=== PATIENT | female | born 1995 | race Caucasian/White ===

== ENCOUNTER 2017-09-24 03:47 | Emergency (ER) | payer OTHER ==
[2017-09-24 04:32] VITALS: O2SAT 96
[2017-09-24 04:54] LABS: BLOOD UREA NITROGEN 8 mg/dl (7-18); CALCIUM 8.2 mg/dl (8.5-10.1); CARBON DIOXIDE 23 mmol/L (21-32); CREATININE 0.43 mg/dl (0.60-1.20); GLUCOSE 101 mg/dl (70-99); POTASSIUM 3.8 mmol/L (3.5-5.1); SODIUM 142 mmol/L (136-145)
--- NOTE | 2017-09-24 07:21 | EMERGENCY ROOM VISIT NOTE ---
ED Visit Note First contact with patient: 03:56 CHIEF COMPLAINT: Altered mental status from Alcohol overdose HISTORY OF PRESENT ILLNESS: This 22 year old female patient presents to the emergency department via ambulance for evaluation of altered mental status, presumably from alcohol intoxication. The patient was drinking this evening with her friends, and eventually passed out in a friend's apartment building. The friends try to take the patient back to her own apartment, however she urinated herself and had multiple episodes of vomiting. The patient does not report pain or injury. No concern for sexual or physical assault. REVIEW OF SYSTEMS: Review of systems was somewhat limited secondary to patient' s presumed alcohol intoxication status. Review of systems was performed to the best of our ability and reperformed as the patient began to sober up. All other systems were reviewed and are negative. ALLERGIES: See EMR MEDICATIONS: See EMR PMH: No chronic medical disease SOCIAL HISTORY: Student and lives locally PHYSICAL EXAM VITALS: Vitals are noted on the nurse's note and reviewed by myself. Vital signs stable. GENERAL: White female, who is in no acute distress and resting comfortably. Patient is visibly altered and smells of alcohol. HEAD: Normocephalic atraumatic. EARS: External ear normal. External auditory canals clear, tympanic membranes pearly hickey without erythema or effusion bilaterally. EYES: Pupils equal round and reactive to light and accommodation. Conjunctivae without injection, sclerae without icterus. Extraocular movements intact. NOSE: Patent, turbinates without inflammation or discharge. MOUTH: Mucous membranes moist. Tonsils are not enlarged. Pharynx without erythema, blood, vomitus, or exudate. Uvula midline. Airway patent. NECK: Supple without nuchal rigidity. No lymphadenopathy. Cervical spine is nontender. HEART: Regular rate and rhythm without murmurs gallops or rubs. LUNGS: Clear to auscultation bilaterally without wheezes, rales or rhonchi. No retractions or accessory muscle use. ABDOMEN: Positive normal bowel sounds x 4. Soft, nontender, without masses or organomegaly. No guarding or rebound tenderness. MUSCULOSKELETAL: No muscle atrophy, erythema, or edema noted. Gross motor function intact to all extremities. NEURO: Patient was alert to person but not place or time. They appear with altered mental status. SKIN: The skin was without rashes, erythema, edema, or bruising. No Tenting of the skin. EMERGENCY DEPARTMENT COURSE: Physical exam and history was performed. Nursing notes and EMR were reviewed. The patient appears to be altered on my examination. I suspect this is from an alcohol overdose. Conservative care measures and aspiration precautions were instituted. The patient was placed on surveillance monitor and watched during the patient's stay. The patient was placed in a prone position. Blood work was obtained and was reviewed. The patient's blood alcohol level was 278. This appears to be the primary cause of the altered status. Patient was reevaluated multiple times throughout the course of their emergency department stay. She remained in stable condition until the time of shift change. The case was discussed with Cam Muñiz PA-C, who will assume care at this time. Please see his dictation for final disposition. Differential diagnosis: Etiologies such as alcohol intoxication, metabolic, infection, hypoglycemia, electrolyte abnormalities, cardiac sources, intracerebral event, toxicologic, neurologic, as well as others were entertained. DIAGNOSIS: Alcohol use with intoxication Current/Historical Medications Unable to Obtain Active Prescriptions or Reported Meds Vital Signs Date Time Temp Pulse Resp B/P (MAP) Pulse Ox O2 Delivery O2 Flow Rate FiO2 09/24/17 09:17 36.6 104 18 112/80 100 09/24/17 08:49 104 18 112/80 100 Room Air 09/24/17 07:00 92 12 98/76 96 Room Air 09/24/17 06:01 92 20 115/61 97 Room Air 09/24/17 05:01 85 18 100/54 97 Room Air 09/24/17 04:32 96 Room Air 09/24/17 04:30 96 Room Air 09/24/17 04:05 87 09/24/17 04:01 88 18 106/58 97 Room Air 09/24/17 03:52 36.6 70 20 147/60 96 Room Air Laboratory Results 09/24/17 04:24 Test 09/24/17 04:24 Anion Gap 8.0 mmol/L (3-11) Estimated GFR () > 150.0 Estimated GFR (Non- 146.4 BUN/Creatinine Ratio 19.7 (10-20) Calcium Level 8.2 mg/dl (8.5-10.1) Human Chorionic Gonadotropin, Qual NEG (NEG) Ethyl Alcohol mg/dL 278.0 mg/dl (0-3) Departure Information Impression Primary Impression: Alcohol use with intoxication Dispostion Home / Self-Care Condition GOOD Prescriptions Unable to Obtain Active Prescriptions or Reported Meds Forms HOME CARE DOCUMENTATION FORM, IMPORTANT VISIT INFORMATION Patient Instructions [facility], [facility]: [employer] Students and Alcohol Related Visits Additional Instructions You were seen and evaluated today on an emergency basis only. This is not a substitute for, or an effort to provide, complete comprehensive medical care. It is not possible to recognize and treat all injuries or illnesses in a single emergency department visit. Keep well-hydrated. Small sips of water over a long period of time are better tolerated than large amounts at once. Tylenol 1000 mg every 6 hours as needed for pain (Maximum 3000 mg Tylenol in 24 hr period). Follow up with family doctor as needed. You are welcome to return to the emergency department anytime with new, worsening, or concerning symptoms.
--- NOTE | 2017-09-24 08:54 | EMERGENCY ROOM VISIT NOTE ---
ED Visit Note Patient was signed out to me at time of shift change at 0700 hrs. on September 24, 2017 by Josemanuel Burns PA-C. I was called to bedside by the nurse around 8:45 AM as the patient was requesting to be discharged home safely with 2 friends. It was noted that from calculation from her blood alcohol that she would be able to safely leave on her own at 11 AM, and I do believe that leaving 2 hours early with friends is reasonable. The justification of this is that upon my examination of the patient she is coherently talking, managing her airway without difficulty and is alert and oriented. She is able to ambulate without difficulty. The friends who were with her were educated to certainly watch her for the next few hours and not let her fall asleep supine.
[2017-09-24 09:17] VITALS: BP 112/80; PULSE 104; TEMP 36.6; O2SAT 100
== END 2017-09-24 09:20 | disposition home or self-care (01) ==
LOC: EDBD 03:47 → C.EDB 03:47
DX: F10.929 Alcohol use, unspecified with intoxication, unspecified (principal); Y90.8 Blood alcohol level of 240 mg/100 ml or more